=== PATIENT | female | born 1960 | race Caucasian/White ===

== ENCOUNTER 2022-06-12 05:08 | Inpatient (IN) | payer BC, OTHER ==
[2022-06-12 07:55] VITALS: BMI 31.0
[2022-06-12] MEDS ORDERED: Calcium Carbonate 500 MG ChewTAB PO PRN (07:57)
[2022-06-12] MEDS ORDERED: Bupropion 150 MG XL TAB PO SCH (09:30)
[2022-06-12] MEDS ORDERED: Aripiprazole 10 MG TAB PO SCH (09:30)
[2022-06-12] MEDS: Enoxaparin Sodium 40 MG/0.4 ML SYRINGE SC SCH (10:06)
[2022-06-12] MEDS: Multivit, Therapeutic 1 TAB PO SCH ×2 (10:07→10:09)
[2022-06-12] MEDS: Thiamine HCl 200 MG/2 ML VIAL SLOW IVP SCH (10:07)
[2022-06-12] MEDS: Folic Acid 1 MG TAB PO SCH (10:07)
[2022-06-12] MEDS: Mometasone 200 MCG/Formoterol 5 MCG 120 PUFF INHALER INH SCH (18:33)
[2022-06-12] MEDS: Atorvastatin Calcium 20 MG TAB PO SCH (20:33)
[2022-06-13] MEDS: Acetaminophen 325 MG TAB PO PRN (03:22)
[2022-06-13] MEDS: cefTRIAXone\\ROCEPHIN 1 GM in Sodium Chloride 0.9% 100 ML IVPB SCH (04:33)
[2022-06-13 04:41] LABS: #Lymphocytes 1.6 thou/uL (1.20-3.40); #Monocytes 1.2 thou/uL (0.11-0.59); #Neutrophils 9.8 thou/uL (1.40-6.50); %Basophils 0.2 % (0.0-1.0); %Eosinophils 0.2 % (0.0-10.0); %Lymphocytes 12.3 % (21.0-51.0); %Monocytes 9.7 % (0.0-10.0); %Neutrophils 77.6 % (42.0-75.0); MDiff Complete? YES; Macrocytosis SLIGHT = 6-15 cells (100X) (0-5/hpf); Mean Corpuscular HGB CONC 33.8 g/dL (32.0-36.0); Mean Corpuscular Hemoglobin 36.6 pg (27.0-31.0); Mean Platelet Volume 7.5 fL (7.4-10.4); Platelet Count 294 thou/uL (130-400); RBC Distribution Width 13.2 % (11.5-14.5); Red Blood Cell (RBC) Count 4.09 mill/uL (4.20-5.40); White Blood Cell (WBC) Count 12.7 thou/uL (4.8-10.8)
[2022-06-13 05:13] LABS: ALT (SGPT) 30 U/L (8-55); AST (SGOT) 20 U/L (5-34); Albumin 3.4 g/dL (3.5-5.0); Alkaline Phosphatase 84 U/L (40-110); Anion Gap 10 mmol/L (10-20); BUN (Urea Nitrogen) 11 mg/dL (9.8-20.1); Bilirubin, Total 0.3 mg/dL (0.2-1.2); Calc. Creatinine Clearance 134 mL/min (70-130); Calcium 9.6 mg/dL (7.8-10.44); Carbon Dioxide 36 mmol/L (22-29); Chloride 99 mmol/L (98-107); Estimated GFR 104; Globulin 3.1 g/dL (2.4-3.5); Glucose 106 mg/dL (70-105); Potassium 4.6 mmol/L (3.5-5.1); Protein, Total 6.5 g/dL (6.0-8.3); Sodium 140 mmol/L (136-145)
[2022-06-13] MEDS: Mometasone 200 MCG/Formoterol 5 MCG 120 PUFF INHALER INH SCH ×2 (06:33→19:06)
[2022-06-13] MEDS: Aripiprazole 10 MG TAB PO SCH (09:56)
[2022-06-13] MEDS: Folic Acid 1 MG TAB PO SCH (09:57)
[2022-06-13] MEDS: Multivit, Therapeutic 1 TAB PO SCH (09:58)
[2022-06-13] MEDS: Azithromycin 250 MG TAB PO SCH (09:58)
[2022-06-13] MEDS: Enoxaparin Sodium 40 MG/0.4 ML SYRINGE SC SCH (09:58)
[2022-06-13] MEDS: predniSONE 20 MG TAB PO SCH (09:58)
[2022-06-13] MEDS: Bupropion 150 MG XL TAB PO SCH (12:02)
[2022-06-13] MEDS: Thiamine HCl 200 MG/2 ML VIAL SLOW IVP SCH (12:03)
[2022-06-13] MEDS: Atorvastatin Calcium 20 MG TAB PO SCH (20:18)
[2022-06-14] MEDS: Acetaminophen 325 MG TAB PO PRN ×2 (01:02→07:47)
[2022-06-14] MEDS: cefTRIAXone\\ROCEPHIN 1 GM in Sodium Chloride 0.9% 100 ML IVPB SCH (05:34)
[2022-06-14 07:29] LABS: #Basophils 0.1 thou/uL (0.0-0.2); #Lymphocytes 1.9 thou/uL (1.20-3.40); #Monocytes 0.8 thou/uL (0.11-0.59); #Neutrophils 6.2 thou/uL (1.40-6.50); %Basophils 0.7 % (0.0-1.0); %Eosinophils 0.1 % (0.0-10.0); %Monocytes 8.6 % (0.0-10.0); %Neutrophils 69.5 % (42.0-75.0); Hemoglobin 14.7 g/dL (12.0-16.0); Mean Corpuscular HGB CONC 29.9 g/dL (32.0-36.0); Mean Platelet Volume 7.1 fL (7.4-10.4); Platelet Count 354 thou/uL (130-400); RBC Distribution Width 13.3 % (11.5-14.5); Red Blood Cell (RBC) Count 4.46 mill/uL (4.20-5.40); White Blood Cell (WBC) Count 8.9 thou/uL (4.8-10.8)
[2022-06-14] MEDS: Mometasone 200 MCG/Formoterol 5 MCG 120 PUFF INHALER INH SCH ×2 (07:58→18:52)
[2022-06-14 08:10] LABS: Hypochromia SLIGHT = 6-15 cells (100X) (0-5/hpf); MDiff Complete? YES; Macrocytosis SLIGHT = 6-15 cells (100X) (0-5/hpf); Platelet Morphology Comment Appears Adequate; Polychromasia SLIGHT = 2-3 cells (100X) (0-2/hpf)
[2022-06-14] MEDS: Folic Acid 1 MG TAB PO SCH (08:53)
[2022-06-14] MEDS: Multivit, Therapeutic 1 TAB PO SCH (08:53)
[2022-06-14] MEDS: Aripiprazole 10 MG TAB PO SCH (08:53)
[2022-06-14] MEDS: predniSONE 20 MG TAB PO SCH (08:54)
[2022-06-14] MEDS: Azithromycin 250 MG TAB PO SCH (08:54)
[2022-06-14] MEDS: Enoxaparin Sodium 40 MG/0.4 ML SYRINGE SC SCH (08:54)
[2022-06-14] MEDS: Thiamine HCl 200 MG/2 ML VIAL SLOW IVP SCH (10:52)
[2022-06-14] MEDS: Bupropion 150 MG XL TAB PO SCH (10:52)
[2022-06-14] MEDS: AMOXicillin 250 MG CAP PO SCH ×2 (14:47→20:43)
[2022-06-14] MEDS: Atorvastatin Calcium 20 MG TAB PO SCH (20:43)
[2022-06-15 05:52] LABS: #Lymphocytes 2.1 thou/uL (1.20-3.40); #Monocytes 0.7 thou/uL (0.11-0.59); #Neutrophils 4.7 thou/uL (1.40-6.50); %Basophils 0.3 % (0.0-1.0); %Eosinophils 0.6 % (0.0-10.0); %Lymphocytes 28.1 % (21.0-51.0); %Monocytes 9.2 % (0.0-10.0); %Neutrophils 61.8 % (42.0-75.0); Hemoglobin 14.3 g/dL (12.0-16.0); Mean Corpuscular HGB CONC 30.6 g/dL (32.0-36.0); Mean Corpuscular Hemoglobin 33.6 pg (27.0-31.0); Mean Platelet Volume 7.3 fL (7.4-10.4); Platelet Count 342 thou/uL (130-400); Red Blood Cell (RBC) Count 4.25 mill/uL (4.20-5.40); White Blood Cell (WBC) Count 7.5 thou/uL (4.8-10.8)
[2022-06-15] MEDS: Mometasone 200 MCG/Formoterol 5 MCG 120 PUFF INHALER INH SCH (07:03)
[2022-06-15] MEDS ORDERED: Thiamine 100 MG TAB PO SCH (09:00)
[2022-06-15] MEDS: Folic Acid 1 MG TAB PO SCH (09:06)
[2022-06-15] MEDS: Bupropion 150 MG XL TAB PO SCH (09:07)
[2022-06-15] MEDS: Aripiprazole 10 MG TAB PO SCH (09:07)
[2022-06-15] MEDS: predniSONE 20 MG TAB PO SCH (09:07)
[2022-06-15] MEDS: Azithromycin 250 MG TAB PO SCH (09:07)
[2022-06-15] MEDS: Multivit, Therapeutic 1 TAB PO SCH (09:07)
[2022-06-15] MEDS: Enoxaparin Sodium 40 MG/0.4 ML SYRINGE SC SCH (09:08)
[2022-06-15] MEDS: AMOXicillin 250 MG CAP PO SCH ×2 (09:08→14:46)
[2022-06-15 11:42] VITALS: BP 151/87
[2022-06-15 16:03] VITALS: TEMP 98.3
== END 2022-06-15 15:40 | disposition home or self-care (01) | DRG 871 ==
LOC: IMCU/EMU 07:25 → T4-B 06-13 15:33
PROVIDERS: ADMIT Emergency Medicine; ATTEND Emergency Medicine
DX: A41.9 Sepsis, unspecified organism (principal); J18.9 Pneumonia, unspecified organism; J96.01 Acute respiratory failure with hypoxia; J44.1 Chronic obstructive pulmonary disease with (acute) exacerbation; J44.0 Chronic obstructive pulmonary disease with (acute) lower respiratory infection; E78.00 Pure hypercholesterolemia, unspecified; F41.9 Anxiety disorder, unspecified; F32.A Depression, unspecified; F17.210 Nicotine dependence, cigarettes, uncomplicated; F10.10 Alcohol abuse, uncomplicated; E78.5 Hyperlipidemia, unspecified; Z88.8 Allergy status to other drugs, medicaments and biological substances; Z79.899 Other long term (current) drug therapy; Z98.890 Other specified postprocedural states; Z90.81 Acquired absence of spleen
CPT/HCPCS: 36415; 80053; 84145; 85025; 87385; 94640; J0696; J1650; J3411; J3490; J7512; J7620